=== PATIENT | male | born 1995 | race Caucasian/White ===

== ENCOUNTER 2017-03-25 17:49 | Emergency (ER) | payer OTHER ==
[~2017-03-25] VITALS: Ht 165.1 cm; Wt 71.4 kg
[~2017-03-25 17:49] MED LIST: NOCURR
[2017-03-25] MEDS ORDERED: MOME13HF2 IH (18:18)
[2017-03-25 20:00] VITALS: BP 128/72
[2017-03-25] MEDS ORDERED: ACETAMINOPHEN 325 MG TABLET PO ONE (20:30)
== END 2017-03-25 20:27 | disposition home or self-care (01) ==
LOC: EMS 17:51
DX: S09.90XA Unspecified injury of head, initial encounter (principal); J45.909 Unspecified asthma, uncomplicated; Z88.0 Allergy status to penicillin; V49.49XA Driver injured in collision with other motor vehicles in traffic accident, initial encounter; Y93.89 Activity, other specified; Y92.89 Other specified places as the place of occurrence of the external cause; Y99.8 Other external cause status
CPT/HCPCS: 99282

== ENCOUNTER 2021-04-25 14:25 | Emergency (ER) | payer OTHER ==
[~2021-04-25] VITALS: Ht 165.1 cm; Wt 81.8 kg
[~2021-04-25 14:25] MED LIST changes: +MOME13HF2 IH; -NOCURR
[2021-04-25 14:29] VITALS: BP 105/61
== END 2021-04-25 17:27 | disposition home or self-care (01) ==
LOC: EMS 14:25
DX: J45.909 Unspecified asthma, uncomplicated (principal); Z20.822 Contact with and (suspected) exposure to COVID-19
CPT/HCPCS: 99283; U0003

== ENCOUNTER 2021-11-08 15:06 | Inpatient (IN) | payer MEDICAID ==
[~2021-11-08] VITALS: Ht 165.1 cm; Wt 86.6 kg
[2021-11-08] MEDS ORDERED: HALOPERIDOL 5 MG TABLET PO PRN (17:30)
[2021-11-08] MEDS ORDERED: LORazepam 2 MG TABLET PO PRN (17:30)
[2021-11-08] MEDS ORDERED: ZOLPIDEM TARTRATE 10 MG TABLET PO PRN (17:30)
[2021-11-08] MEDS ORDERED: PNEUMOCOCCAL VACCINE POLYVALENT 0.5 ML VIAL [PPSV23] IM. ONE (18:45)
[2021-11-08] MEDS ORDERED: ALBUTEROL SULFATE HFA 90 MCG/PUFF 8 GM INHALER IH PRN (20:45)
[2021-11-09 01:04] VITALS: BP 121/78
[2021-11-09 07:54] LABS: BASOPHILS % (AUTO) 1.1 % (0.0-2.0); EOSINOPHILS % (AUTO) 3.3 % (1.0-6.0); HEMATOCRIT 42.7 % (41-53); HEMOGLOBIN 14.3 g/dL (13.5-17.5); LYMPHOCYTES # (AUTO) 2.3 K/uL (1.0-4.8); LYMPHOCYTES % (AUTO) 35.6 % (22.0-44.0); MEAN CORPUSCULAR HEMOGLOBIN 28.2 pg (26.0-34.0); MEAN CORPUSCULAR HGB CONC 33.5 G/dL (31.0-37.0); MEAN CORPUSCULAR VOLUME 84 fL (80-100); MONOCYTES # (AUTO) 0.6 K/uL (0.1-1.0); MONOCYTES % (AUTO) 9.5 % (2.0-9.0); NEUTROPHILS # (AUTO) 3.2 K/uL (1.8-7.7); NEUTROPHILS % (AUTO) 50.5 % (40.0-70.0); PLATELET COUNT (AUTO) 324 K/uL (150-450); RED BLOOD CELL COUNT(AUTO) 5.07 MIL/uL (4.50-5.90); RED CELL DISTRIBUTION WIDTH 14.4 % (11.5-14.5)
[2021-11-09 08:01] LABS: HEMOGLOBIN A1C 5.6 % (3.8-5.6)
[2021-11-09 08:14] LABS: ALANINE AMINOTRANSFERASE 15 U/L (12-78); ALBUMIN 3.9 g/dL (3.4-5.0); ALKALINE PHOSPHATASE 66 U/L (46-116); ANION GAP 10 mmol/L (8-16); ASPARTATE AMINOTRANSFERASE 23 U/L (15-37); BILIRUBIN,TOTAL 0.7 mg/dL (0.1-1.0); CALCIUM, TOTAL 9.1 mg/dL (8.8-10.5); CARBON DIOXIDE 30 mmol/L (22-29); CHLORIDE 102 mmol/L (98-107); CHOL/HDL RATIO 3.7 (4.2-7.3); CHOLESTEROL 183 mg/dL (131-200); CREATININE 0.99 mg/dL (0.60-1.30); FREE T4 (FREE THYROXINE) 1.16 ng/dL (0.76-1.46); GLOMERULAR FILTR. RATE CALC > 60 mL/min (>60); GLUCOSE,RANDOM 85 mg/dL (70-110); HDL CHOLESTEROL 49 mg/dL (40-60); LDL CHOL (CALC.) 121 mg/dL (0-130); POTASSIUM 4.4 mmol/L (3.5-5.1); SODIUM SERUM 142 mmol/L (136-145); THYROID STIMULATING HORMONE 0.69 uIU/mL (0.36-3.74); TOTAL PROTEIN, SERUM 7.2 g/dL (6.4-8.2); TRIGLYCERIDES 65 mg/dL (15-150); UREA NITROGEN, BLOOD 8 mg/dL (7-18)
[2021-11-09 08:20] VITALS: BP 120/82
[2021-11-09] MEDS ORDERED: ACETAMINOPHEN 325 MG TABLET PO PRN (09:30)
[2021-11-09] MEDS ORDERED: PETROLATUM,WHITE 28 GM JELLY TP PRN (09:30)
[2021-11-09] MEDS ORDERED: DOCUSATE SODIUM 100 MG CAPSULE PO PRN (09:30)
[2021-11-09] MEDS ORDERED: IBUPROFEN 400 MG TABLET PO PRN (09:30)
[2021-11-09] MEDS ORDERED: MAG HYDROX/AL HYDROX/SIMETH ES 30 ML SUSPENSION UDCUP PO PRN (09:30)
[2021-11-09] MEDS ORDERED: CloNIDine HCL 0.1 MG TABLET PO PRN (09:30)
[2021-11-09] MEDS ORDERED: NICOTINE 14 MG/24 HOUR PATCH TD PRN (09:30)
[2021-11-09] MEDS ORDERED: GuaiFENesin/D-METHORPHAN [SUGAR-FREE] 200-20MG/10 ML SYRUP UDCUP PO PRN (09:30)
[2021-11-09] MEDS ORDERED: ONDANSETRON HCL 4 MG TABLET PO PRN (09:30)
[2021-11-09] MEDS ORDERED: LOPERAMIDE HCL 2 MG CAPSULE PO PRN (09:30)
[2021-11-09] MEDS ORDERED: MAGNESIUM HYDROXIDE SUSPENSION 30 ML UDCUP PO PRN (09:30)
[2021-11-09 16:14] VITALS: BP 126/82
[2021-11-09] MEDS ORDERED: [UNRECOGNIZED DRUG - OTHER] IH SCH (17:00)
[2021-11-10 05:32] VITALS: BP 105/60
[2021-11-10 06:54] LABS: APPEARANCE,URINE TURBID (CLEAR); BILIRUBIN,URINE NEGATIVE (NEGATIVE); GLUCOSE, URINE (UA) NEGATIVE (NEGATIVE); KETONES,URINE NEGATIVE (NEGATIVE); LEUKOCYTE ESTERASE ,URINE NEGATIVE (NEGATIVE); NITRATE,URINE NEGATIVE (NEGATIVE); OCCULT BLOOD,URINE NEGATIVE (NEGATIVE); PH,URINE 6.5 (5.0-8.0); PROTEIN,URINE 100-200,SEE CONFIRM mg/dL (NEGATIVE)
[2021-11-10 07:00] LABS: AMPHET/METH SCREEN,URINE NEGATIVE (NEGATIVE); BARBITURATE SCREEN, URINE NEGATIVE (NEGATIVE); BENZODIAZEPINES SCREEN,URINE NEGATIVE (NEGATIVE); CANNABINOID SCREEN,URINE POSITIVE (NEGATIVE); COCAINE SCREEN,URINE NEGATIVE (NEGATIVE); METHADONE SCREEN, URINE NEGATIVE (NEGATIVE); OPIATE SCREEN,URINE NEGATIVE (NEGATIVE); PHENCYCLIDINE SCREEN,URINE NEGATIVE (NEGATIVE)
[2021-11-10 07:13] LABS: SULFOSALICYLIC ACID,URINE 1+ (Negative)
[2021-11-10 07:14] LABS: AMORPHOUS SEDIMENT,UR Many /LPF (None Seen); BACTERIA,URINE None Seen /HPF (None Seen); RBC,URINE 0-2 /HPF (0-2); WBC,URINE 0-2 /HPF (0-5)
[2021-11-10 08:22] VITALS: BP 135/87
[2021-11-10 16:22] VITALS: BP 118/78
[2021-11-11 06:22] VITALS: BP 126/88
[2021-11-11 08:49] VITALS: BP 134/83
[2021-11-11] MEDS: FLUoxetine HCL 20 MG CAPSULE PO SCH (12:49)
[2021-11-11 16:29] VITALS: BP 120/66
[2021-11-12 01:06] VITALS: BP 123/79
[2021-11-12 09:10] VITALS: BP 133/82
[2021-11-12] MEDS: FLUoxetine HCL 20 MG CAPSULE PO SCH (09:45)
[2021-11-12] MEDS ORDERED: PROZ20 PO (11:49)
== END 2021-11-12 15:10 | disposition home or self-care (01) | DRG 751 ==
LOC: B2S 17:21
PROVIDERS: ADMIT Psychiatry & Neurology Child & Adolescent Psychiatry; ATTEND Psychiatry & Neurology Child & Adolescent Psychiatry
DX: F33.2 Major depressive disorder, recurrent severe without psychotic features (principal); R45.851 Suicidal ideations; E66.3 Overweight; F10.10 Alcohol abuse, uncomplicated; J45.909 Unspecified asthma, uncomplicated; F12.10 Cannabis abuse, uncomplicated; Z68.31 Body mass index [BMI] 31.0-31.9, adult; Z71.41 Alcohol abuse counseling and surveillance of alcoholic; Z71.51 Drug abuse counseling and surveillance of drug abuser
CPT/HCPCS: 80053; 80061; 80307; 81001; 81002; 83036; 84439; 84443; 85025

== ENCOUNTER 2022-04-10 17:09 | Emergency (ER) | payer MEDICAID, OTHER ==
[~2022-04-10] VITALS: Ht 167.6 cm; Wt 82.0 kg
[~2022-04-10 17:09] MED LIST changes: -MOME13HF2 IH; +PROZ20 PO
[2022-04-10] MEDS ORDERED: NAPR-1025 PO (19:05)
[2022-04-10] MEDS ORDERED: METH-659 PO (19:05)
[2022-04-10] MEDS ORDERED: KETOROLAC TROMETHAMINE 10 MG TABLET PO ONE (19:15)
[2022-04-10] MEDS ORDERED: METHOCARBAMOL 500 MG TABLET PO ONE (19:15)
[2022-04-10 19:30] VITALS: BP 125/70
== END 2022-04-10 21:47 | disposition home or self-care (01) ==
LOC: EMS 17:09
DX: F07.81 Postconcussional syndrome (principal); F12.90 Cannabis use, unspecified, uncomplicated; J45.909 Unspecified asthma, uncomplicated; Z88.0 Allergy status to penicillin
CPT/HCPCS: 70450; 99284